=== PATIENT | male | born 1945 | race Caucasian/White ===

== ENCOUNTER 2016-09-10 09:59 | Emergency (ER) | payer MEDICARE, OTHER ==
[~2016-09-10] VITALS: Ht 167.6 cm; Wt 105.2 kg
[~2016-09-10 09:59] MED LIST: ACETAMINOPHEN325 M1 PO; ADULT LOW DOSE81 MG PO; AMIODARONE HCL100 MG PO; B COMPLEX1 EACH PO; CALCITRIOL0.5 MCG PO; CENTRUM SILVER1 EAC6 PO; CLONIDINE HCL0.1 M1 PO; CO Q-10200 MG PO; COREG25 MG PO; COUMADIN2.5 MG PO; CYMBALTA30 MG PO; DILTIAZEM ER90 MG PO; FISH OIL 1,0001 EAC3 PO; FOLIC ACID1 MG PO; GABAPENTIN600 MG PO; KLOR-CON20 MEQ PO; LEVEMIR100 UNIT/1 SUB-Q; LEVOTHYROXINE175 MCG PO; LIPITOR40 MG PO; LOTENSIN40 MG PO; MAGNESIUM250 M1 PO; PREDNISONE5 MG PO; REMICADE100 MG/10 IV; SOCHLOR15 ML OPTH; TORSEMIDE20 MG PO; VICTOZA 3-0.6 MG/0.1 SUB-Q; VITAMIN C1000 MG PO; VITAMIN D5000 UNI1 PO; VITAMIN E400 UNI4 PO
[2016-11-07] MEDS ORDERED: CLONIDINE HCL0.1 MG PO (15:12)
[2016-11-07] MEDS ORDERED: DILTIAZEM 24HR300 M1 PO (15:13)
[2016-11-07] MEDS ORDERED: CALCITRIOL0.25 MCG PO (15:13)
[2016-11-07] MEDS ORDERED: LEVEMIR FL100 UNIT/2 SUB-Q (15:14)
[2016-11-07] MEDS ORDERED: BENAZEPRIL HCL40 MG PO (15:15)
[2016-11-07] MEDS ORDERED: POTASSIUM CHLO20 ME1 PO (15:21)
[2016-11-07] MEDS ORDERED: AMIODARONE HCL200 MG PO (15:23)
[2016-12-05] MEDS ORDERED: GLUCOPHAGE500 MG PO (10:02)
== END 2016-09-10 12:13 | disposition home or self-care (01) ==
LOC: ED 09:59
DX: S20.212A Contusion of left front wall of thorax, initial encounter (principal); I13.0 Hypertensive heart and chronic kidney disease with heart failure and stage 1 through stage 4 chronic kidney disease, or unspecified chronic kidney disease; E11.22 Type 2 diabetes mellitus with diabetic chronic kidney disease; N18.3 Chronic kidney disease, stage 3 (moderate); I50.9 Heart failure, unspecified; E78.00 Pure hypercholesterolemia, unspecified; Z86.73 Personal history of transient ischemic attack (TIA), and cerebral infarction without residual deficits; Z90.89 Acquired absence of other organs; Z79.899 Other long term (current) drug therapy; Z79.01 Long term (current) use of anticoagulants; Z79.82 Long term (current) use of aspirin; W01.0XXA Fall on same level from slipping, tripping and stumbling without subsequent striking against object, initial encounter
CPT/HCPCS: 71101; 99283

== ENCOUNTER 2016-09-19 16:17 | Emergency (ER) | payer MEDICARE, OTHER ==
[~2016-09-19] VITALS: Ht 165.1 cm; Wt 104.8 kg
[2016-09-19] MEDS ORDERED: COUMADIN2.5 MG PO (16:48)
[2016-09-19] MEDS ORDERED: NORCO 5-325 TA1 EACH PO (19:04)
[2016-09-19] MEDS ORDERED: KEFLEX500 MG PO (19:04)
[2016-11-07] MEDS ORDERED: CLONIDINE HCL0.1 MG PO (15:12)
[2016-11-07] MEDS ORDERED: CALCITRIOL0.25 MCG PO (15:13)
[2016-11-07] MEDS ORDERED: DILTIAZEM 24HR300 M1 PO (15:13)
[2016-11-07] MEDS ORDERED: LEVEMIR FL100 UNIT/2 SUB-Q (15:14)
[2016-11-07] MEDS ORDERED: BENAZEPRIL HCL40 MG PO (15:15)
[2016-11-07] MEDS ORDERED: POTASSIUM CHLO20 ME1 PO (15:21)
[2016-11-07] MEDS ORDERED: AMIODARONE HCL200 MG PO (15:23)
[2016-12-05] MEDS ORDERED: GLUCOPHAGE500 MG PO (10:02)
== END 2016-09-19 19:26 | disposition home or self-care (01) ==
LOC: ED 16:17
DX: N39.0 Urinary tract infection, site not specified (principal); I13.0 Hypertensive heart and chronic kidney disease with heart failure and stage 1 through stage 4 chronic kidney disease, or unspecified chronic kidney disease; E11.22 Type 2 diabetes mellitus with diabetic chronic kidney disease; N18.3 Chronic kidney disease, stage 3 (moderate); I50.9 Heart failure, unspecified; E78.00 Pure hypercholesterolemia, unspecified; Z86.73 Personal history of transient ischemic attack (TIA), and cerebral infarction without residual deficits; Z79.01 Long term (current) use of anticoagulants; Z79.52 Long term (current) use of systemic steroids; Z79.4 Long term (current) use of insulin; Z79.82 Long term (current) use of aspirin
CPT/HCPCS: 74176; 80053; 81001; 85025; 85610; 96372; 99284; J3010

== ENCOUNTER 2017-02-13 06:36 | Day surgery (SDC) | payer MEDICARE, OTHER ==
[~2017-02-13] VITALS: Ht 167.6 cm; Wt 107.5 kg
[~2017-02-13 06:36] MED LIST changes: +AMIODARONE HCL200 MG PO; +BENAZEPRIL HCL40 MG PO; +CALCITRIOL0.25 MCG PO; +CLONIDINE HCL0.1 MG PO; +DILTIAZEM 24HR300 M1 PO; +GLUCOPHAGE500 MG PO; +KEFLEX500 MG PO; +LEVEMIR FL100 UNIT/2 SUB-Q; +NORCO 5-325 TA1 EACH PO; +POTASSIUM CHLO20 ME1 PO
--- NOTE | 2017-02-13 08:40 | NUR ---
02/13/17 0840 Ari Luong PATIENT PASSING AIR FROM [facility]
--- NOTE | 2017-02-13 09:27 | NUR ---
PT RESTING, WAITING FOR SCOPE. HE IS ALERT AND ORIENTED. HIS IS SLEEPING OUT IN THEIR CAR. HE WAS PLEASANT, GLAD THE PREP IS OVER. PT DID SEEM TO EXHIBIT SOME TENSION, I EXPLAINED MY FEELINGS DURING MY RECENT SCOPE-IT SEEMED TO HELP SOME. HE WAS PLEASANT TO TALK TO AND HE EXPRESSED PLEASURE IN HOW STAFF FROM ALL AREAS HE STATED SEEMED TO GO OUT OF THEIR WAY TO HELP HIM. HE SPECIFICALLY MENTIONED OFFERING TO HELP HIM WITH WHEEL CHAIRS. OFFERED A BLESSING, WILL FOLLOW NEEDED
--- NOTE | 2017-02-14 10:10 | OR ---
[facility] [address], [place] [address] Signed DATE OF OPERATION: 02/13/2017 SURGEON: Edwin Field MD PREOPERATIVE DIAGNOSES: 1. Possible personal history of colonic polyps. 2. Constipation. 3. Screening. POSTOPERATIVE DIAGNOSIS: Moderate internal hemorrhoids. PROCEDURE: Colonoscopy without biopsy. ESTIMATED BLOOD LOSS: None. INDICATIONS: Gab is a 71-year-old, diabetic gentleman, who had been asked to see me for a followup colonoscopy. He said his last colonoscopy came at age 57. He thinks maybe they took colonic polyps out, but he is not sure. There is no family history of colon cancer or polyps. He does complain of chronic constipation. In the office, I gave him a pamphlet on colonoscopy and we looked at that together along with the risks including, but not limited to, gas bloating, crampy abdominal pain, bleeding, perforation, requiring surgery, and missed diagnosis. We also discussed the need for IV conscious sedation. He had expressed understanding and wished to proceed. PROCEDURE NOTE: Gab was taken into our endoscopy suite and placed in the left lateral decubitus position. He had held his Coumadin and his aspirin. He was given 5 mg of Versed and 100 mcg of fentanyl for the case. A digital rectal exam was performed and he does have some enlargement, some induration to his prostate consistent with his age. No dominant nodules. The right was little more full, than the left. The adult colonoscope was then introduced and advanced all around into the cecum under direct visualization of camera without difficulty. His prep was good. There were couple areas of particulate stool matter, I could not irrigate and suctioned through the scope. We saw no pathology throughout the entire colon or rectum. Upon retroflexion of scope, he had some very routine moderate internal hemorrhoid columns. After this, the gas was suctioned out and the colonoscope removed. Gab tolerated the procedure quite well. Electronically Signed By: EDWIN FIELD MD 02/14/17 1010 PATIENT NAME: GAB NOGUERA JR OPERATIVE REPORT DATE OF : 49 PHYSICIAN: EDWIN FIELD MD REPORT #: [id number] REPORT IS CONFIDENTIAL AND NOT TO BE RELEASED WITHOUT AUTHORIZATION [facility] [address] [place] [id number] Signed RECOMMENDATIONS: I can see Gab back in my office in 10 years for repeat colonoscopy, so long his health holds up. Otherwise, he will resume his chronic medications today including his Coumadin and his aspirin. Edwin Field MD ALB/MODL /[id number] cc: MD Ananda Underwood MD Jeffrey M Lehr, MD Malcolm Townsley, MD Electronically Signed By: EDWIN FIELD MD 02/14/17 1010 PATIENT NAME: CHUCKIE LOCKEGAB GARCIA OPERATIVE REPORT DATE OF : 49 PHYSICIAN: EDWIN FIELD MD REPORT #: [id number] REPORT IS CONFIDENTIAL AND NOT TO BE RELEASED WITHOUT AUTHORIZATION
== END 2017-02-13 09:03 | disposition home or self-care (01) ==
LOC: OPS 06:36 → DS 06:36 → OPS 06:45 → DS 06:45 → OPS 09:03
PROVIDERS: Colon & Rectal Surgery
PROC: 0DJD8ZZ Inspection of Lower Intestinal Tract, Via Natural or Artificial Opening Endoscopic (ICD-10-PCS; principal; 2017-02-13 06:45)
DX: K64.8 Other hemorrhoids (principal); I13.0 Hypertensive heart and chronic kidney disease with heart failure and stage 1 through stage 4 chronic kidney disease, or unspecified chronic kidney disease; E11.22 Type 2 diabetes mellitus with diabetic chronic kidney disease; N18.3 Chronic kidney disease, stage 3 (moderate); I50.9 Heart failure, unspecified; E78.5 Hyperlipidemia, unspecified; E66.9 Obesity, unspecified; M06.9 Rheumatoid arthritis, unspecified; I48.0 Paroxysmal atrial fibrillation; I48.92 Unspecified atrial flutter; G47.33 Obstructive sleep apnea (adult) (pediatric); Z86.73 Personal history of transient ischemic attack (TIA), and cerebral infarction without residual deficits; Z79.01 Long term (current) use of anticoagulants; Z68.37 Body mass index [BMI] 37.0-37.9, adult; Z99.89 Dependence on other enabling machines and devices; Z79.899 Other long term (current) drug therapy
CPT/HCPCS: 99152; 99153; J2250; J3010; J7120